=== PATIENT | male | born 1965 | race Caucasian/White ===

== ENCOUNTER 2020-08-19 02:04 | Outpatient (CLI) | payer BC, SELFPAY ==
[2020-08-21 10:23] LABS: COVID-19 RT-PCR Result NEGATIVE (Negative)
== END 2020-08-19 02:24 ==
PROVIDERS: PCP Family Medicine; Visit Provider Family Medicine
DX: Z20.822 Contact with and (suspected) exposure to COVID-19 (principal)
CPT/HCPCS: U0003

== ENCOUNTER 2021-03-17 09:55 | Outpatient (REF) | payer BC, SELFPAY ==
[2021-03-17 10:43] LABS: Hemoglobin A1C 5.1 % (<5.7)
[2021-03-17 10:48] LABS: ALT 27 U/L (16-63); AST 15 U/L (15-37); Albumin 3.8 g/dL (3.4-5.0); Alkaline Phosphatase 71 U/L (46-116); Anion Gap 7.8 mmol/L (3-11); BUN 17 mg/dL (7-18); Bilirubin, Total 0.9 mg/dL (0.2-1.0); CO2 30.2 mmol/L (21.0-32.0); Calcium 8.4 mg/dL (8.5-10.1); Calculated LDL 116 mg/dL (<100); Chloride 106 mmol/L (98-107); Cholesterol 178 mg/dL (<200); Glucose 87 mg/dL (74-106); HDL Cholesterol 44 mg/dL (40-60); Potassium 4.2 mmol/L (3.5-5.1); Sodium 144 mmol/L (136-145); Total Protein 6.6 g/dL (6.4-8.2); Triglyceride 94 mg/dL (<150)
[2021-03-17 17:22] LABS: PSA, Screening 1.1 ng/mL (0.0-3.5)
== END 2021-03-17 09:56 | disposition home or self-care (01) ==
LOC: LBN 09:55
PROVIDERS: PCP Nurse Practitioner Family; Visit Provider Nurse Practitioner Family
DX: Z00.00 Encounter for general adult medical examination without abnormal findings (principal); Z13.220 Encounter for screening for lipoid disorders; Z13.1 Encounter for screening for diabetes mellitus; Z12.5 Encounter for screening for malignant neoplasm of prostate
CPT/HCPCS: 80053; 80061; 84153; 83036

== ENCOUNTER 2022-01-18 03:30 | Outpatient (CLI) | payer BC, SELFPAY ==
[2022-01-18 12:58] LABS: TSH 3.44 uIU/mL (0.36-3.74)
[2022-01-19 10:32] LABS: Lyme Ab w Rflx to Lyme Confirm Negative (Negative)
[2022-01-20 08:21] LABS: Anaplasma phagocytophilum Negative (Negative); B. miyamotoi PCR Negative (Negative); Babesia divergens/MO-1 Negative (Negative); Babesia duncani Negative (Negative); Babesia microti Negative (Negative); Ehrlichia chaffeensis Negative (Negative); Ehrlichia ewingii/canis Negative (Negative); Ehrlichia muris eauclairensis Negative (Negative)
== END 2022-01-18 03:31 | disposition home or self-care (01) ==
LOC: LOS 03:30
PROVIDERS: PCP Nurse Practitioner Family; Visit Provider Nurse Practitioner Family
DX: R53.83 Other fatigue (principal); M25.9 Joint disorder, unspecified; G89.29 Other chronic pain
CPT/HCPCS: 36415; 87798; 84443; 86618

== ENCOUNTER → 2022-02-08 01:26 | Outpatient (CLI) | payer BC, SELFPAY ==
--- NOTE | 2022-02-08 08:00 | DI.MRI_ITS ---
Exam(s) MR LUMBAR SPINE WO EXAM: MR LUMBAR SPINE WO CLINICAL HISTORY: Worsening pain,CHRONIC LOW BACK PAIN, M54.50,G89.29. TECHNIQUE: Multiplanar multisequence MRI of the Lumbar spine was performed. COMPARISON: No exams were available for comparison FINDINGS: Bones: The last intervertebral disc space is designated the L5/S1 level for the numbering purpose of this examination. There is an old mild compression deformity of L3. No acute fracture or subluxati on is identified. There is straightening of the normal lumbar lordosis. There is a hemangioma or fa tty rest in the S2 vertebral segment. Cord: The conus tip ends at the L1 level. It is of normal size and signal intensity. T12-L1: No disc herniations or bulges are present. No central spinal canal or neural foraminal stenos is. L1-2: No disc herniations or bulges are present. No central spinal canal or neural foraminal stenosis . L2-3: No disc herniations or bulges are present. No central spinal canal or neural foraminal stenosis . L3-4: There is a diffuse disc bulge. Mild hypertrophic changes of the facets are seen. The findings result in mild narrowing of the central spinal canal. There is mild bilateral neural foraminal sten osis. L4-5: No disc herniations or bulges are present. No central spinal canal or neural foraminal stenosis .Mild degenerative changes of the facets are present. L5-S1: There is a left paracentral disc herniation with appears to extend into the left neural forame n. There are degenerative changes of the facets. No significant central spinal canal or right neura l foraminal stenosis is seen. There is mild left neural foraminal narrowing. Soft tissues: The visualized SI joints and sacrum are well maintained. The paraspinal soft tissues ar e unremarkable. IMPRESSION: 1. Left paracentral disc herniation at L5-S1 extending into the left neural foramen. It causes mild left neural foraminal stenosis. 2. Degenerative changes and a diffuse disc bulge at L3-L4 resulting in mild central spinal canal and bilateral neural foraminal narrowing. DATA REPOSITORY:
== END ==
PROVIDERS: PCP Nurse Practitioner Family; Visit Provider Nurse Practitioner Family
DX: M54.59 Other low back pain (principal); G89.29 Other chronic pain; M51.27 Other intervertebral disc displacement, lumbosacral region; M47.897 Other spondylosis, lumbosacral region
CPT/HCPCS: 72148

== ENCOUNTER 2023-01-24 04:20 | Outpatient (CLI) | payer BC, SELFPAY ==
[2023-01-24 11:11] LABS: Abs Immature Grans 0.04 10^3/uL (0.0-0.06); Absolute Basophil Count 0.06 10^3/uL (0.0-0.2); Absolute Eosinophil Count 0.28 10^3/uL (0.0-0.7); Absolute Lymphocyte Count 3.22 10^3/uL (1.2-3.4); Absolute Monocyte Count 0.51 10^3/uL (0.1-0.8); Absolute Neutrophil Count 5.18 10^3/uL (1.2-6.7); Basophils % 0.6; HCT 50.1 % (40.0-50.0); HGB 17.2 g/dL (13.5-17.5); Immature Grans % 0.4; Lymphocytes % 34.7; MCH 29.4 pg (27.0-33.0); MCHC 34.3 % (32.0-36.0); MCV 86 fL (80-95); MPV 9.4 fL (8.0-11.0); Monocytes % 5.5; Neutrophils % 55.8; Platelet Count 174 10^3/uL (130-400); RBC 5.86 10^6/uL (4.36-5.78); RDW 12.6 % (11.8-14.1); RDW-SD 39.2 fL; WBC 9.29 10^3/uL (4.4-10.8)
[2023-01-24 11:21] LABS: Iron 73 ug/dL (65-175); Total Iron Binding Capacity 264 ug/dL (250-450)
[2023-01-24 11:31] LABS: Ferritin 342 ng/mL (26-388)
[2023-01-25 09:34] LABS: Transferrin 203 mg/dL (201-352)
== END 2023-01-24 04:21 | disposition home or self-care (01) ==
LOC: LOS 04:20
PROVIDERS: PCP Nurse Practitioner Family; Visit Provider Nurse Practitioner Family
DX: R53.83 Other fatigue (principal)
CPT/HCPCS: 36415; 82728; 83540; 83550; 84466; 85025

== ENCOUNTER 2023-03-23 22:12 | Emergency (ER) | payer BC, SELFPAY ==
[2023-03-23 22:18] VITALS: BP 167/90; PULSE 60; RESP 15; O2SAT 97
--- NOTE | 2023-03-23 23:06 | W.ED.GENAD ---
Discharge Plan Disposition Patient Disposition: Home Discharge Details Clinical Impression: Lesion of ear Primary Care Provider: Cosmo Dan ED Provider: Mague Finn Home Meds and New Rx's Prescriptions: No Action ibuprofen [IBU] 800 mg tablet 800 mg PO QHS Qty: 30 0RF Discharge Instructions Additional Instructions: Please follow-up with your primary care physician for recheck in 72 hours Do not try to remove the material from the ear unless it is wet Try to keep in place for 3 days if possible You can remove it with tweezers but it should be completely saturated with water to do so You will likely have muffled hearing while this is in place Return with fever, chills, redness behind your ear, or with any new or worsening complaints Referrals: Cosmo Dan, CLINICAL ASSESSMENT MANAGER [Primary Care Provider] - Discharge Data Discharge Date/Time-TO BE ENTERED AT DEPARTURE: 03/23/23 23:39 Medical Decision Making Left ear with blood noted at the external auditory canal the 6 o'clock position, suspect abrasion, tympanic membrane appears to be intact, there is no significant fluid around it, there is no evidence of infection, there is no mastoid tenderness, ear wick with Cipro drops and lidocaine with epi was placed to achieve coagulation Cotton ball will be placed pt had residual bleeding so I placed Surgicel in the ear with TXA and cottonball, coagulation was achieved Patient referred back to PCP for reassessment and surgical removal in 3 days Patient is afebrile and nontoxic He will need close outpatient follow-up, I recommend recheck with primary care physician in 3 days for wick removal and reassessment With persistent symptoms he may need ENT follow-up HPI General Date/Time Provider Initiated Documentation: 03/23/23 22:16. HPI Narrative: This 57-year-old male presents with report of bleeding from his ear starting this morning. Denies known trauma but did use a Q-tip in his ear this morning. He has had bleeding from his ear throughout the day today. He does state there was a mosquito near his ear and so he scratched it but does not think he hurt himself. He denies any pain. Denies any fever or chills. Denies any change in hearing. Denies any headaches. Denies any trauma. Related Data Home Medications Medication Instructions Recorded Confirmed ibuprofen 800 mg tablet (IBU) 800 mg PO QHS pain #30 tabs 03/21/23 03/23/23 Previous Rx's Medication Instructions Recorded ibuprofen 800 mg tablet (IBU) 800 mg PO QHS pain #30 tabs 03/21/23 Allergies Allergy/AdvReac Type Severity Reaction Status Date / Time No Known Allergies Allergy Verified 03/23/23 22:21 General Stated Complaint: EarProblem JAMEEL: 3 PFSH All Active Problems (Updated 03/23/23 @ 23:28 by NURYS Levine) Lesion of ear (Acute) Psoriasis (Chronic) Chronic low back pain (Acute) Fatigue (Acute) Family history of diabetes mellitus (DM) (Acute) Closed burst fracture of lumbar vertebra (Acute 08/16/17) Closed compression fracture of third lumbar vertebra (Acute 08/16/17) Sexual dysfunction (Acute 08/16/17) Surgical History FX L2-L4 (02/19/11) [facility] [place] Family History (Updated 01/03/21 @ 15:53 by Gayathri Castro) Mother , 62 Neoplasm breast Father Essential hypertension Grandfather Aneurysm Social History (Updated 01/16/22 @ 11:18 by Kendra Zaman) Smoking/Tobacco Use Status: Former Tobacco Use tobacco type: cigars and smokeless tobacco Tobacco: How many years used: 35 Smokeless tobacco user: chewing tobacco and snuff Second Hand Exposure: Yes Smoking risk assessment performed?: Yes Alcohol Intake: current Alcohol Intake frequency: a few times a month Alcohol type: beer and hard liquor Drug use: Never Substance use type: does not use Caregiver/Support person: No Household members: spouse Housing: house Communication Needs: None Do you need help understanding health information?: Rarely Pets and animals: Yes Pets and animals: cat(s) and dog(s) Sexually active: Yes Do you think of yourself as: straight/heterosexual Current gender identity: male What is your relationship status?: How often do you talk on the phone with friends or family?: twice per week How often do you get together with friends or relatives?: twice per week Do you belong to any clubs or organized social groups?: no Panel score (0-1 are the most socially isolated patients): 2 Frequency: does not exercise Shaunna/Orthodox: No preference Special shaunna needs: No Seatbelt use: sometimes Helmet use: Yes Helmet use: sometimes Drive intox or ride w/intox commercial collections driver: No Do you feel safe in your relationship?: Yes Course Vital Signs Vital signs: Vital Signs Pulse 60 03/23/23 22:18 Respiratory Rate 15 03/23/23 22:18 Blood Pressure 167/90 H 03/23/23 22:18 Pulse Oximetry 97 03/23/23 22:18 Pulse 60 03/23/23 22:18 Respiratory Rate 15 03/23/23 22:18 Respiratory Effort Normal 03/23/23 22:22 Blood Pressure 167/90 H 03/23/23 22:18 Blood Pressure Position Sitting 03/23/23 22:18 Pulse Oximetry 97 03/23/23 22:18 Oxygen Delivery Method Room Air 03/23/23 22:18 Oxygen Flow Rate 0 03/23/23 22:18 Pain Level 0 03/23/23 22:22
[2023-03-23] MEDS: Cellulose,Oxidized 2X3 PKT 1 EACH MC (23:16)
[2023-03-23] MEDS: Tranexamic Acid 1,000 MG/10 ML VIAL 1000 MG IVP (23:16)
== END 2023-03-23 23:39 | disposition home or self-care (01) ==
PROVIDERS: Emergency Provider Physician Assistant; PCP Nurse Practitioner Family
DX: H93.92 Unspecified disorder of left ear (principal)
CPT/HCPCS: 96374; 99284

== ENCOUNTER 2023-03-29 09:10 | Outpatient (CLI) | payer BC, SELFPAY ==
[2023-03-29 13:32] LABS: Vitamin B12 690 pg/mL (193-986)
[2023-04-07 10:48] LABS: Testosterone, Free 8.96 ng/dL (3.87-14.7); Testosterone, Total 415 ng/dL (240-950)
== END 2023-03-29 09:11 | disposition home or self-care (01) ==
LOC: LOS 09:14
PROVIDERS: PCP Nurse Practitioner Family; Visit Provider Nurse Practitioner Family
DX: R53.83 Other fatigue (principal)
CPT/HCPCS: 36415; 84402; 84403; 82607

== ENCOUNTER 2024-02-03 03:20 | Outpatient (CLI) | payer BC, SELFPAY ==
[2024-02-03 13:08] LABS: Hemoglobin A1C 5.1 % (<5.7)
[2024-02-03 13:23] LABS: Calculated LDL 124 mg/dL (<100); Cholesterol 195 mg/dL (<200); HDL Cholesterol 56 mg/dL (40-60); Triglyceride 78 mg/dL (<150)
== END 2024-02-03 03:21 | disposition home or self-care (01) ==
LOC: LOS 03:20
PROVIDERS: PCP Nurse Practitioner Family; Visit Provider Nurse Practitioner Family
DX: Z12.5 Encounter for screening for malignant neoplasm of prostate (principal); Z13.1 Encounter for screening for diabetes mellitus; Z13.220 Encounter for screening for lipoid disorders
CPT/HCPCS: 36415; 80061; 84153; 83036

== ENCOUNTER 2025-04-16 00:38 | Outpatient (CLI) | payer BC, SELFPAY ==
[2025-04-16 14:25] LABS: Calculated LDL 143 mg/dL (<100); Cholesterol 205 mg/dL (<200); HDL Cholesterol 45 mg/dL (>or=40); Triglyceride 89 mg/dL (<150)
[2025-04-16 14:26] LABS: Hemoglobin A1C 5.1 % (<5.7)
[2025-04-16 23:29] LABS: PSA, Screening 1.6 ng/mL (<=4.5)
[2025-04-19 12:30] LABS: Lyme Ab w Rflx to Lyme Confirm Negative (Negative)
== END 2025-04-16 00:39 | disposition home or self-care (01) ==
LOC: LOS 00:38
PROVIDERS: PCP Nurse Practitioner Family; Visit Provider Nurse Practitioner Family
DX: Z12.5 Encounter for screening for malignant neoplasm of prostate (principal); Z13.220 Encounter for screening for lipoid disorders; Z13.1 Encounter for screening for diabetes mellitus; M25.50 Pain in unspecified joint
CPT/HCPCS: 36415; 80061; 84153; 87798; 83036; 86618

== ENCOUNTER 2025-04-21 15:19 | Outpatient (CLI) | payer BC, SELFPAY ==
[2025-04-23 13:45] LABS: B. miyamotoi PCR Negative (Negative); Babesia divergens/MO-1 Negative (Negative); Ehrlichia muris eauclairensis Negative (Negative)
== END 2025-04-21 15:20 | disposition home or self-care (01) ==
LOC: LBO 15:19
PROVIDERS: PCP Nurse Practitioner Family; Visit Provider Nurse Practitioner Family
DX: R53.83 Other fatigue (principal)
CPT/HCPCS: 36415; 87798